=== PATIENT | female | born 1950 | race Caucasian/White ===

== ENCOUNTER 2022-08-17 08:00 | Outpatient (CLI) | payer MEDICARE ==
--- NOTE | 2022-08-18 14:09 | XRAY Report ---
PROCEDURE: Knee 3 View RT INDICATIONS: OSTEOARTHRITIS, RIGHT KNEE TECHNIQUE: 3 views of the right knee(s) were acquired. COMPARISON: None. FINDINGS: Bones: No fractures or dislocations. No suspicious bony lesions. Moderate to severe tricompartmental arthritic narrowing most severe laterally. Periarticular osteophy sarah are present without erosions. Soft tissues: Mild knee joint effusion. No suspicious soft tissue calcifications or masses. IMPRESSION: Tricompartmental arthritic change. Reviewed by: Maggy Burnett MD on 08/18/2022 2:08 PM PDT Approved by: Maggy Burnett MD on 08/18/2022 2:08 PM PDT Station ID: [id number]
== END 2022-08-17 23:59 | disposition home or self-care (01) ==
LOC: DI.S 08:00
PROVIDERS: ATTEND Emergency Medicine
DX: M17.11 Unilateral primary osteoarthritis, right knee (principal)